=== PATIENT | male | born 1945 | race Caucasian/White ===

== ENCOUNTER → 2016-05-30 | Day surgery (SDC) | payer OTHER, MEDICAID ==
[~2016-05-30] MED LIST: BUPIVACAINE HCL PF 0.75% 30 ML VIAL ONE; EPINEPHrine HCL (1:1000) 30 MG/30 ML VIAL ONE; GLIP10 PO; HYDR-3129 PO; LACTATED RINGER'S 1000 ML INJ 1,000 ML ONE; LIDOCAINE 1.5%/EPINEPHrine 1:200,000 PF SOLN 30 ML AMP ONE; MIDAZOLAM HCL 5 MG/ML VIAL (1 ML) ONE; PROPOFOL 200 MG/20 ML AMP IV ONE; PYRI200T4 PO; TAMS0.4C67 PO; VALI10TA PO; ceFAZolin INJ 1,000 MG VIAL ONE
--- NOTE | 2016-06-04 07:22 | MP ---
cc: RICARDO ROSENBERG DATE OF SURGERY: 05/30/2016 PREOPERATIVE DIAGNOSIS: Right shoulder rotator cuff tear with impingement. POSTOPERATIVE DIAGNOSIS Right shoulder rotator cuff tear with impingement. Superior labral tear. SURGEON: Dr. Ulysses Rosenberg PASTEURIZING MACHINE OPERATOR: VENITA Reed The surgical procedure was assisted by my Advanced Registered Nurse Practitioner. My SPORT PSYCHOLOGIST presence was necessary throughout this case for the manipulation and positioning of the surgical extremity. My SPORT PSYCHOLOGIST was assisting me throughout the duration of this procedure. The skill set of an Advance Registered Nurse Practitioner was medically necessary to complete this procedure. During the surgical case, the entry level automotive technician was working at the back table and the Advance Registered Nurse Practitioner was directly assisting me. PROCEDURE: Right shoulder arthroscopic rotator cuff repair with superior labral repair. ESTIMATED BLOOD LOSS: Minimal ANESTHESIA: Interscalene block and general PROCEDURE The patient had regional anesthesia administered. He was brought back to the operative theatre received intravenous antibiotics. General anesthesia was administered. He was placed into a lateral decubitus position with an axillary roll and a well-padded down leg. The patient has a history of an AV fistula in the operative eye arm so we were very careful when we were rolling up the nonsterile arm bruno and then when we placed the Coban around the arm, we were also very careful not to create any excess specific band of Coban in that area. Initially we started with 10 pounds of traction, went up to 15 pounds, as he did have somewhat of a heavy arm. There did not seem to be any undue tension on the arm. The right upper extremity was prepped and draped in the usual sterile fashion. 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 No loose bodies in the axillary pouch were noted. There was significant tearing of the superior labrum by the biceps insertion region. We created accessory portal in the soft spot. We then debrided this labral tear. We noted that there was some mild synovitis around the base of the biceps tendon but the biceps tendon itself was in very good condition. We probed this and noted that the anchor point of the biceps was torn from the glenoid. We noted tear of the undersurface of the rotator cuff of the supraspinatus tendon region. The infraspinatus was intact. The subscapularis tendon was intact. We decided to move forward with the superior labral repair since it was unstable. We prepared the glenoid using oscillating shaver. We then used the suture lasso to place a FiberWire through the posterior mid aspect of the labrum which we were then able to throw our FiberLink through and then this was secured down using the Arthrex Biocomposite PushLock system which gave excellent repair. We placed our arthroscope in the subacromial space, confirmed that the rotator cuff tear was small and full-thickness. We debrided the edges of the cuff. We repaired the greater tuberosity with an oscillating and forward shaver. We did need subacromial decompression with a small acromioplasty. There was significantly hypertrophied coracoacromial ligament which was resected. There was quite a bit of extrinsic impingement from this which was removed. We then moved forward with repairing the rotator cuff using a modified type of procedure. We placed first our medial SwiveLock which had two limbs of a FiberTape associated but also had a #2 FiberWire associated with it. We placed a #2 FiberWire anteriorly in horizontal mattress stitch fashion and then just behind that we placed each limb of the FiberTape in horizontal mattress fashion. We augmented this with a single FiberLink that was located just between the two limbs of the FiberTape. We did this after laying down the suture laterally to see how the cuff would reduce. We did tie the FiberWire which was anterior in the standard arthroscopic knot tying technique. We then took the two limbs from that and then the two limbs of the FiberTape and then the single limb of the FiberLink and then pulled those over to an Arthrex SwiveLock laterally which reduced the cuff completely anatomically with excellent repair. We took multiple arthroscopic pictures. We then closed the skin with 2-0 Vicryl, followed by 3-0 nylon and the patient's arm was dressed. He was placed into a sling and swath. Postoperative Plan: Follow standard rotator cuff repair protocol and superior labral repair protocol. MD GAUTAM Aponte/DELFIN /2:17 PM /6:39 AM
== END | disposition home or self-care (01) ==
LOC: ESDC 10:10
PROVIDERS: ATTEND Orthopaedic Surgery
DX: M75.121 Complete rotator cuff tear or rupture of right shoulder, not specified as traumatic (principal); S43.431A Superior glenoid labrum lesion of right shoulder, initial encounter
CPT/HCPCS: C1713; J0171; J0690; J2250; J7120

== ENCOUNTER 2016-12-31 19:25 | Emergency (ER) | payer OTHER, MEDICAID ==
[~2016-12-31 19:25] MED LIST changes: -BUPIVACAINE HCL PF 0.75% 30 ML VIAL ONE; -EPINEPHrine HCL (1:1000) 30 MG/30 ML VIAL ONE; -LACTATED RINGER'S 1000 ML INJ 1,000 ML ONE; -LIDOCAINE 1.5%/EPINEPHrine 1:200,000 PF SOLN 30 ML AMP ONE; -MIDAZOLAM HCL 5 MG/ML VIAL (1 ML) ONE; -PROPOFOL 200 MG/20 ML AMP IV ONE; -ceFAZolin INJ 1,000 MG VIAL ONE
[2016-12-31 19:29] VITALS: BP 165/109; PULSE 79; RESP 20; TEMP 98.2; O2SAT 99
--- NOTE | 2016-12-31 19:53 | PD ---
HPI Chief Complaint: Musculoskeletal Complaint Time Seen by Provider: 19:40 Travel History International Travel<30 days: No Contact w/Intl Traveler<30days: No Traveled to known affect area: No History of Present Illness HPI 71-year-old male here for evaluation of left knee pain and swelling. Patient reports that the pain started about a week ago and has progressively worsened. Pain is moderate, worse with movement and palpation. He denies trauma. No fevers or chills. He is able to ambulate, and states that he only feels pain when he has to walk up or down a step. He reports history of prepatellar bursitis. He also reports that symptoms started after he noticed his right third finger was swollen and tender. He believes this migrated to his left ankle which became swollen and tender, then to his left knee. He no longer has left ankle pain. PFSH Past Medical History Arthritis: No Asthma: No Autoimmune Disease: No Heart Rhythm Problems: No Cancer: No High Cholesterol: No Chest Pain: No Congestive Heart Failure: No COPD: No Cerebrovascular Accident: No Diabetes: Yes Dialysis: Yes (HAS HAD DIALYSIS TWICE and then did not need after that) Diminished Hearing: No Endocrine: No GERD: Yes Hiatal Hernia: No Hypertension: No Immune Disorder: No Kidney Stones: Yes Musculoskeletal: No Neurologic: No Psychiatric: No Reproductive: No Respiratory: No Migraines: No Renal Failure: No Sleep Apnea: No Thyroid Disease: No Ulcer: No Past Surgical History AICD: No Appendectomy: Yes Arteriovenous Shunt: No Cardiac Surgery: No Cholecystectomy: Yes Endocrine Surgery: No Eye Surgery: Yes (LEFT EYE X 2) Genitourinary Surgery: Yes (TURP 03/18/15) Gynecologic Surgery: No Insulin Pump: No Joint Replacement: No Neurologic Surgery: Yes (LAMINECTOMY) Pacemaker: No Thoracic Surgery: No Social History Alcohol Use: Yes (1 BEER DAILY) Tobacco Use: No (QUIT 2011) Substance Use: No Allergies-Medications (Allergen,Severity, Reaction): Coded Allergies: hydromorphone (Unverified Allergy, Mild, n/v, 12/31/16) denies any allergy to med 12/31/16 meperidine (Unverified Allergy, Mild, n/v, 12/31/16) denies any allergy to med 12/31/16 Reported Meds & Prescriptions Reported Meds & Active Scripts Active Reported Flomax (Tamsulosin HCl) 0.4 Mg Cap 0.8 Mg PO HS Valium (Diazepam) 10 Mg Tab 10 Mg PO DAILY Review of Systems Except as stated in HPI: all other systems reviewed are Neg Physical Exam Narrative GENERAL: Well-developed, well-nourished, comfortable, no apparent distress. SKIN: Focused skin assessment warm/dry. HEAD: Atraumatic. Normocephalic. EYES: Pupils equal and round. No scleral icterus. No injection or drainage. ENT: Mucous membranes pink and moist. NECK: Trachea midline. No JVD. CARDIOVASCULAR: Regular rate and rhythm. No murmur appreciated. MUSCULOSKELETAL: Left anterior knee with moderate swelling with mild warmth, no erythema. Limited range of motion in flexion and extension secondary to pain. There is moderate diffuse tenderness. Left calf is supple without tenderness. Left ankle with mild swelling, no tenderness. Right third finger with mild edema distally without warmth or erythema. NEUROLOGICAL: Awake and alert. No obvious cranial nerve deficits. Motor grossly within normal limits. Normal speech. PSYCHIATRIC: Appropriate mood and affect; insight and judgment normal. Data Data Last Documented VS Vital Signs Date Time Temp Pulse Resp B/P (MAP) Pulse Ox O2 Delivery O2 Flow Rate FiO2 12/31/16 19:51 79 20 12/31/16 19:29 98.2 165/109 (127) 99 Orders Orders Knee, Complete (4vws) (12/31/16 ) [facility] Medical Decision Making Medical Screen Exam Complete: Yes Emergency Medical Condition: Yes Differential Diagnosis Osteoarthritis, prepatellar bursitis, gout, septic arthritis less likely Narrative Course Vital signs show heart rate 79, blood pressure 165/109, pulse ox 99% on room air , oral temp of 98.2F. Bedside ultrasound of the left knee was performed by me and does not show a significant joint effusion. Left knee x-ray will be ordered. Left knee x-ray: CONCLUSION: 1. Chondrocalcinosis. 2. Moderate medial femoral tibial joint space narrowing consistent with osteoarthritis. 3. Pre-patellar soft tissue swelling. 4. Calcification involving the distal fibers of the quadriceps tendon. 5. No acute fracture or dislocation. Patient was made aware of all findings. Exam is not consistent with a septic arthritis. He is able to bear weight. He is also afebrile. Plan is to give the patient an injection of Decadron and oral pain medications and discharged home with a prescription for pain medication. He recently had a right rotator cuff repair by Dr. Lewis. I instructed him to follow up with his orthopedic surgeon as well as his primary care physician this week. He was informed on when to return to the emergency department. He verbalizes understanding and agreement with plan. Diagnosis Primary Impression: Osteoarthritis Qualified Codes: M17.12 - Unilateral primary osteoarthritis, left knee Additional Impression: Left knee pain Qualified Codes: M25.562 - Pain in left knee Referrals: Joo Lewis MD 3 days Primary Care Physician 3 days Additional Instructions: Follow-up with orthopedic surgeon Dr. Lewis this week. Follow-up with your primary care physician this week. Return to the emergency department for worsening symptoms or any other concerns as discussed. Scripts Naproxen (Naprosyn) 500 Mg Tab 500 MG PO BID for 10 Days, #60 TAB 0 Refills Prov: Keenan Villanueva MD 12/31/16 Hydrocodone-Acetaminophen (Lortab) 5-325 Mg Tab 1 TAB PO Q6H Y for PAIN, #20 TAB 0 Refills Prov: Keenan Villanueva MD 12/31/16 Disposition: 01 DISCHARGE HOME Condition: Stable Keenan Villanueva MD Dec 31, 2016 19:53
[2016-12-31] MEDS ORDERED: TAMS5CAP PO (20:11)
[2016-12-31] MEDS ORDERED: DIAZ10 PO (20:11)
--- NOTE | 2016-12-31 20:50 | RADRPT ---
EXAM DATE/TIME: 12/31/2016 20:04 [facility] COMPARISON: No previous studies available for comparison. INDICATIONS : Chronic left knee pain. MEDICAL HISTORY : None. SURGICAL HISTORY : None. ENCOUNTER: Initial ACUITY: 4 - 6 days PAIN SCORE: 7/10 LOCATION: Left lateral FINDINGS: Moderate joint space narrowing is noted involving the medial femoral tibial joint. Chondrocalcinosis is also noted. There is no acute fracture or dislocation of the left knee. No knee joint effusion is noted. There is calcification involving the distal fibrous of the quadriceps tendon. There is pr epatellar soft tissue swelling. CONCLUSION: 1. Chondrocalcinosis. 2. Moderate medial femoral tibial joint space narrowing consistent with osteoarthritis. 3. Pre-patellar soft tissue swelling. 4. Calcification involving the distal fibers of the quadriceps tendon. 5. No acute fracture or dislocation. Umair Flores MD on December 31, 2016 at 20:22 Board Certified Radiologist. This report was verified electronically.
[2016-12-31] MEDS ORDERED: ACETAMINOPHEN/HYDROcodone 325 MG/5 MG TAB PO ONE (21:00)
[2016-12-31] MEDS ORDERED: NAPROXEN 500 MG TAB PO ONE (21:00)
[2016-12-31] MEDS ORDERED: DEXAMETHASONE SOD PHOS 20 MG/5 ML VIAL IM ONE (21:00)
[2016-12-31] MEDS ORDERED: NAPR500 PO (21:04)
[2016-12-31] MEDS ORDERED: HYDR-3533 PO (21:04)
[2016-12-31 21:57] VITALS: BP 150/88
== END 2016-12-31 21:59 | disposition home or self-care (01) ==
LOC: PHED 19:25
DX: M17.12 Unilateral primary osteoarthritis, left knee (principal); M25.562 Pain in left knee; Z87.891 Personal history of nicotine dependence; E11.9 Type 2 diabetes mellitus without complications; K21.9 Gastro-esophageal reflux disease without esophagitis; Z87.442 Personal history of urinary calculi; G89.29 Other chronic pain
CPT/HCPCS: 73564; 96372; 99284; J1100